=== PATIENT | male | born 1980 | race Caucasian/White ===

== ENCOUNTER 2016-07-03 04:53 | Inpatient (IN) | payer OTHER ==
[~2016-07-03] VITALS: Ht 162.6 cm; Wt 182.8 kg
--- NOTE | ~2016-07-03 | EKG ---
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 07/05/16 [id number] [id number] Danny Panda MD, FACC /EPI
--- NOTE | ~2016-07-03 | O ---
[facility] [place] [address] OPERATIVE REPORT Name: GABOMODESTO Room #: 542-P ADM IN M.R.#: [id number] Admission: 07/03/16 Attend Phys: Mamta Martin MD Discharge: Date of : 76 Report #: [id number] THIS REPORT FOR: //name// CC: BONNIE physician/PCP Mamta Martin DATE OF SERVICE: 07/06/2016 PREOPERATIVE DIAGNOSIS: Left ureteral calculus. POSTOPERATIVE DIAGNOSES: 1. Left ureteral calculus. 2. Meatal stenosis. PROCEDURE: Cystoscopy, left ureteroscopy, laser lithotripsy, stone extraction and stent placement and meatal dilation. SURGEON: Dawson Mayo MD. ANESTHESIA: General. OPERATIVE SUMMARY: The patient brought to the operating room and administered general anesthesia. The patient was then placed in the lithotomy position. The patient's abdomen, perineum and penis were prepped and draped in the usual fashion. The patient received Cipro 400 mg IV preoperatively. I attempted to place the cystoscope into the urethra and he was noted to have meatal stenosis. This was dilated with Azar sounds from 18 Croatian to 26 Croatian. The cystoscope was then easily placed into the bladder. A 0.035 wire was placed up the left ureter and met resistance in the distal ureter. I was able to manipulate the wire around the stone and up into the renal pelvis. Ureteral orifice was then dilated with a dilation balloon. The 7-[place] ureteroscope was then placed into the distal ureter where a 6 mm yellow/black stone was identified. Using the 365 laser fiber, the stone was broken up into small fragments. These passed into the bladder. The ureteroscope was passed up to the mid ureter, no other stones were seen. A 6 x 26 stent was then placed and was noted to be in good position on fluoroscopy. The patient tolerated the procedure well and left the operating room in good condition. We will plan to leave his stent in for 10 days. By: [id number] Dawson Mayo MD /nt
[~2016-07-03 04:53] MED LIST: HYDROCODONE-AP1 EAC6 PO; PEPCID20 MG PO; PHENERGAN 25 MG25 M1 PO
[2016-07-03 04:55] VITALS: BP 166/117
[2016-07-03 05:05] LABS: URINE BILIRUBIN NEGATIVE (Negative); URINE BLOOD 3+ (Negative); URINE COLOR YELLOW; URINE GLUCOSE-RANDOM* NEGATIVE (Negative); URINE KETONES NEGATIVE (Negative); URINE NITRITE NEGATIVE (Negative); URINE SPECIFIC GRAVITY 1.015 (1.003-1.035); URINE UROBILINOGEN 0.2 E.U./dl (0.2-1.0)
[2016-07-03 05:11] LABS: ABSOLUTE NEUTROPHILS 6.2 thou/uL (1.4-8.2); BASOPHILS 0.9 % (0.0-2.0); EOSINOPHILS 1.7 % (0.0-3.0); HEMATOCRIT 41.6 % (42.0-52.0); HEMOGLOBIN 14.2 gm/dL (14.0-18.0); LYMPHOCYTES 19.8 % (24.0-44.0); MCH 27.6 pg (26.0-34.0); MCHC 34.2 g/dL (28.0-37.0); MCV 80.8 fL (80.0-100.0); PLATELET COUNT 311 thou/uL (150-400); POLYS 69.6 % (36.0-66.0); RBC 5.15 mil/uL (4.50-6.00); RDW 13.1 % (10.5-14.5); WBC 8.9 thou/uL (4.0-11.0)
[2016-07-03 05:19] LABS: CALCIUM 9.4 mg/dL (8.5-10.1); CREATININE 1.5 mg/dL (0.7-1.3); POTASSIUM 3.5 mmol/L (3.5-5.1)
[2016-07-03 05:20] LABS: CASTS None Seen /LPF (None Seen); SQUAMOUS None Seen /LPF (0-3)
[2016-07-03 05:21] LABS: BACTERIA 1-9 Few /HPF (None Seen); CRYSTALS None Seen /LPF (None Seen); URINE RBC >20 Many /HPF (0-2); URINE WBC None Seen /HPF (0-5)
[2016-07-03 05:25] LABS: MANUAL DIFF NO
[2016-07-03 05:40] LABS: SSA (PROTEIN CONFIRMATORY) TRACE (APPROX. 5) mg/dL (Negative)
[2016-07-03 05:42] LABS: URINE PROTEIN (DIPSTICK) TRACE (Negative)
[2016-07-03 06:30] VITALS: BP 165/75
[2016-07-03 06:33] VITALS: BP 164/85
[2016-07-03 07:11] VITALS: BP 153/93
[2016-07-03 15:17] VITALS: BP 163/91
[2016-07-03 20:00] VITALS: BP 121/59
[2016-07-04 04:00] VITALS: BP 124/56
[2016-07-04 06:07] LABS: ABSOLUTE NEUTROPHILS 4.1 thou/uL (1.4-8.2); BASOPHILS 0.6 % (0.0-2.0); EOSINOPHILS 2.7 % (0.0-3.0); HEMATOCRIT 41.2 % (42.0-52.0); HEMOGLOBIN 13.8 gm/dL (14.0-18.0); LYMPHOCYTES 25.9 % (24.0-44.0); MCH 27.5 pg (26.0-34.0); MCHC 33.5 g/dL (28.0-37.0); MCV 82.3 fL (80.0-100.0); PLATELET COUNT 267 thou/uL (150-400); POLYS 63.8 % (36.0-66.0); RDW 13.4 % (10.5-14.5); WBC 6.4 thou/uL (4.0-11.0)
[2016-07-04 06:30] LABS: ALBUMIN 3.1 g/dL (3.4-5.0); CALCIUM 8.6 mg/dL (8.5-10.1); CREATININE 1.2 mg/dL (0.7-1.3); POTASSIUM 4.1 mmol/L (3.5-5.1); TOTAL BILIRUBIN 0.4 mg/dL (<0.1-1.0)
[2016-07-04 06:57] LABS: MANUAL DIFF NO
[2016-07-04 07:35] VITALS: BP 188/102
[2016-07-04 12:13] LABS: CHOLESTEROL 180 mg/dL (<200); HDL CHOLESTEROL 35 mg/dL (>40); LDL CHOLESTEROL 128 mg/dL (<100); TC:HDL 5.1 Ratio (Not establshd); TRIGLYCERIDE 88 mg/dL (<150); VLDL 18 mg/dL (<40)
[2016-07-04 16:15] VITALS: BP 1325/77
[2016-07-04 20:10] VITALS: BP 154/94
[2016-07-05 07:20] VITALS: BP 166/93
[2016-07-05 15:20] VITALS: BP 160/92
[2016-07-05 19:57] VITALS: BP 136/74
[2016-07-06 05:04] VITALS: BP 128/70
[2016-07-06 06:56] LABS: CALCIUM 8.6 mg/dL (8.5-10.1); CREATININE 1.1 mg/dL (0.7-1.3); POTASSIUM 3.9 mmol/L (3.5-5.1)
[2016-07-06 07:53] VITALS: BP 149/88
[2016-07-06 12:00] VITALS: BP 152/72
[2016-07-06 15:27] VITALS: BP 122/70
[2016-07-06 20:35] VITALS: BP 146/91
[2016-07-07 07:50] VITALS: BP 120/73
[2016-07-07] MEDS ORDERED: LORTAB 5-325 M1 EACH PO (10:16)
[2016-07-07] MEDS ORDERED: COLACE 100 MG100 MG PO (10:16)
[2016-07-07] MEDS ORDERED: LEVAQUIN 500 M500 M2 PO (10:16)
[2016-07-07] MEDS ORDERED: ASPIRIN325 PO (10:16)
[2016-07-07] MEDS ORDERED: LOPRESSOR25 PO (10:16)
[2016-07-07] MEDS ORDERED: FLOMAX0.4 MG PO (10:16)
[2016-07-07 11:04] VITALS: BP 120/73
== END 2016-07-07 11:50 | disposition home or self-care (01) | DRG 669 ==
LOC: ER 04:53 → 5S 05:55 → EROBS 05:55 → 5S 06:25
PROVIDERS: Emergency Medicine; Nurse Practitioner; Nurse Practitioner Gerontology
PROC: 0T778DZ Dilation of Left Ureter with Intraluminal Device, Via Natural or Artificial Opening Endoscopic (ICD-10-PCS; principal; 2016-07-06)
PROC: 0T7D8DZ Dilation of Urethra with Intraluminal Device, Via Natural or Artificial Opening Endoscopic (ICD-10-PCS; principal; 2016-07-06)
PROC: 0TC78ZZ Extirpation of Matter from Left Ureter, Via Natural or Artificial Opening Endoscopic (ICD-10-PCS; principal; 2016-07-06)
DX: N20.1 Calculus of ureter (principal); Z68.44 Body mass index [BMI] 60.0-69.9, adult; I10 Essential (primary) hypertension; R07.89 Other chest pain; R30.0 Dysuria; R11.2 Nausea with vomiting, unspecified; F12.90 Cannabis use, unspecified, uncomplicated; R73.9 Hyperglycemia, unspecified; N28.9 Disorder of kidney and ureter, unspecified; K21.9 Gastro-esophageal reflux disease without esophagitis; E66.01 Morbid (severe) obesity due to excess calories; N35.9 Urethral stricture, unspecified; F31.9 Bipolar disorder, unspecified; Z88.0 Allergy status to penicillin; Z79.82 Long term (current) use of aspirin; Z79.899 Other long term (current) drug therapy; Z87.891 Personal history of nicotine dependence; Z82.49 Family history of ischemic heart disease and other diseases of the circulatory system; Z83.3 Family history of diabetes mellitus
CPT/HCPCS: 10086; 50010; 50101; 50453; 50478; 51179; 51767; 56672; 56815; 62110; 62900; 64037; 70005

== ENCOUNTER 2019-04-24 08:09 | Emergency (ER) | payer BC ==
[~2019-04-24] VITALS: Ht 172.7 cm; Wt 181.4 kg
[~2019-04-24 08:09] MED LIST changes: +ASPIRIN325 PO; +COLACE 100 MG100 MG PO; +FLOMAX0.4 MG PO; +LEVAQUIN 500 M500 M2 PO; +LOPRESSOR25 PO; +LORTAB 5-325 M1 EACH PO
[2019-04-24] MEDS ORDERED: GINKGO BILOBA30 MG PO (08:21)
[2019-04-24] MEDS ORDERED: ST. JOHN'S WOR300 MG PO (08:21)
[2019-04-24 09:03] LABS: ABSOLUTE NEUTROPHILS 3.8 thou/uL (1.4-8.2); BASOPHILS 0.3 % (0.0-2.0); HEMOGLOBIN 14.8 gm/dL (14.0-18.0); LYMPHOCYTES 9.1 % (24.0-44.0); MCH 29.2 pg (26.0-34.0); MCHC 35.3 g/dL (28.0-37.0); MCV 82.8 fL (80.0-100.0); MONOCYTES 10.9 % (1.0-8.0); PLATELET COUNT 236 thou/uL (150-400); POLYS 79.7 % (36.0-66.0); RBC 5.08 mil/uL (4.50-6.00); RDW 13.6 % (10.5-14.5); WBC 4.7 thou/uL (4.0-11.0)
[2019-04-24 09:15] LABS: CREATININE 1.1 mg/dL (0.7-1.3); POTASSIUM 3.7 mmol/L (3.5-5.1)
[2019-04-24 09:19] LABS: ALBUMIN 3.8 g/dL (3.4-5.0); TOTAL BILIRUBIN 0.3 mg/dL (<0.1-1.0); TOTAL PROTEIN 8.2 g/dL (6.4-8.2)
[2019-04-24 09:50] VITALS: BP 157/85
== END 2019-04-24 10:00 | disposition home or self-care (01) ==
LOC: ER 08:09
PROVIDERS: Emergency Medicine
DX: J10.1 Influenza due to other identified influenza virus with other respiratory manifestations (principal); E66.9 Obesity, unspecified; Z87.891 Personal history of nicotine dependence; Z88.0 Allergy status to penicillin